=== PATIENT | male | born 1985 | race Hispanic/Latino ===

== ENCOUNTER 2017-05-03 12:37 | Emergency (ER) | payer OTHER ==
[2017-05-03 12:37] VITALS: BMI 27.1
[2017-05-03 13:00] VITALS: RESP 18; TEMP 98.4
--- NOTE | 2017-05-03 13:44 | RAD ---
PROCEDURE: Right Wrist Radiographs. HISTORY: wrist injury COMPARISON: None. FINDINGS: BONES: Comminuted fracture 5th metacarpal base with intra-articular extension. No significant appearing displacement. JOINTS: . No dislocation. SOFT TISSUES: Normal. OTHER FINDINGS: None. IMPRESSION: Fifth metacarpal base comminuted fracture - nondisplaced. Intraarticular extension
--- NOTE | 2017-05-03 13:44 | RAD ---
PROCEDURE: Right Hand Radiographs. HISTORY: hand injury COMPARISON: None. FINDINGS: BONES: Normal. No fracture.Comminuted fracture 5th metacarpal base with intra-articular extension. No significant appearing displacement. JOINTS: . No osteoarthritic changes. SOFT TISSUES: Soft tissue swelling bordering 5th metacarpal fracture OTHER FINDINGS: None. IMPRESSION: Comminuted fracture 5th metacarpal base with intra-articular extension. No significant appearing displacement.
--- NOTE | 2017-05-03 14:12 | ED PDOC ---
Arrival/HPI - General Chief Complaint: Finger,Hand,&Wrist Time Seen by Provider: 05/03/17 13:09 Historian: Patient - History of Present Illness Narrative History of Present Illness (Text): 05/03/17 Oh Gomez is a 32 year old male, who presents to the emergency department complaining of dorsal aspect of right hand and wrist pain s/p mechanical fall four days ago. Patient reports he was trying to get something out from his closet when he fell off from ladder. Patient landed on his right hand and arm and ever since then his symptoms have been present. He denies any head trauma or loss of consciousness. Patient states pain is worse with movement / motion. Patient denies any numbness, tingling, or weakness. No other complaints were made. Time/Duration: < week (4 days) Symptom Onset: Sudden Symptom Course: Unchanged Modifying Factors (Text): worse with movement/motion Context: Home, Other (fell off ladder) Past Medical History - Provider Review Nursing Documentation Reviewed: Yes - Past History Past History: No Previous - Infectious Disease Hx of Infectious Diseases: None - Past Medical History Past Medical History: Non-Contributing - Musculoskeletal/Rheumatological Hx Musculoskeletal Disorders: Yes Other/Comment: Left ankle fracture 2015 - Psychiatric Hx Psychophysiologic Disorder: No Hx Depression: No Hx Emotional Abuse: No Hx Physical Abuse: No Hx Substance Use: No - Past Surgical History Past Surgical History: Non-Contributing - Anesthesia Hx Anesthesia: No Hx Anesthesia Reactions: No Hx Malignant Hyperthermia: No - Suicidal Assessment Feels Threatened In Home Enviroment: No Family/Social History - Physician Review Nursing Documentation Reviewed: Yes Family/Social History: Unknown Family HX Smoking Status: Current Some Days Smoker Hx Alcohol Use: Yes Hx Substance Use: No Hx Substance Use Treatment: No Allergies/Home Meds Allergies/Adverse Reactions: Allergies No Known Allergies Allergy (Verified 04/05/16 09:57) Review of Systems - Review of Systems Constitutional: absent: Fevers Respiratory: absent: SOB Cardiovascular: absent: Chest Pain Gastrointestinal: absent: Abdominal Pain, Vomiting Musculoskeletal: Other (right hand and wrist pain). absent: Back Pain Neurological: absent: Headache, Dizziness Physical Exam Vital Signs Reviewed: Yes Vital Signs Temp Pulse Resp BP Pulse Ox 05/03/17 15:18 71 18 122/81 100 05/03/17 12:37 98.4 F 88 18 118/75 99 Temperature: Afebrile Blood Pressure: Normal Pulse: Regular Respiratory Rate: Normal Appearance: Positive for: Well-Appearing, Non-Toxic, Comfortable Pain Distress: None Mental Status: Positive for: Alert and Oriented X 3 - Systems Exam Head: Present: Atraumatic, Normocephalic Conjunctiva: Present: Normal Mouth: Present: Moist Mucous Membranes Neck: Present: Normal Range of Motion Respiratory/Chest: Present: Clear to Auscultation, Good Air Exchange. No: Respiratory Distress, Accessory Muscle Use Cardiovascular: Present: Regular Rate and Rhythm, Normal S1, S2. No: Murmurs Upper Extremity: Present: Normal Inspection, Normal ROM, NORMAL PULSES, Tenderness (point tenderness on base of 5th metacarpal and noted ulnar aspect of wrist), Swelling (right wrist side ), Neurovascularly Intact, Capillary Refill < 2s. No: Cyanosis, Edema, Erythema, Deformity Neurological: Present: GCS=15, Speech Normal, Motor Func Grossly Intact, Normal Sensory Function, Gait Normal Skin: Present: Warm, Dry, Normal Color. No: Rashes Psychiatric: Present: Alert, Oriented x 3 Medical Decision Making ED Course and Treatment: 05/03/17 Impression: 32 year old male with right hand and wrist pain. On physcal, patient has swelling on right side of wrist. Also noted point tenderness on base of 5th metacarpal and noted ulnar aspect of wrist. FROM of both wrist and hand. Sensation and pulses are intact. No erythema. Differential Diagnosis included but are not limited to: fracture Plan: -- Right hand x-ray -- Right wrist x-ray -- Motrin -- Reassess and disposition Progress Notes: Patient refused IM medication for pain, but requested Motrin PO. Ulnar Gutter splint was applied by me and patient was instructed to follow up with hand doctor. 05/03/17 13;45 Hand x-ray (right): Creator : Shefali Anderson V. FINDINGS: BONES: Normal. No fracture.Comminuted fracture 5th metacarpal base with intra- articular extension. No significant appearing displacement. JOINTS: No osteoarthritic changes. SOFT TISSUES: Soft tissue swelling bordering 5th metacarpal fracture OTHER FINDINGS: None. IMPRESSION: Comminuted fracture 5th metacarpal base with intra-articular extension. No significant appearing displacement. 05/03/17 13:45 Wrist x-ray (right): Creator : Shefali Anderson V. FINDINGS: BONES: Comminuted fracture 5th metacarpal base with intra-articular extension. No significant appearing displacement. JOINTS: No dislocation. SOFT TISSUES: Normal. OTHER FINDINGS: None. IMPRESSION: Fifth metacarpal base comminuted fracture - nondisplaced. Intraarticular extension all results discussed with patient; stressed importance of f/u within the next 2 days. return immediately if unable to f/u with hand specialist. IMPRESSION: Fifth metacarpal base comminuted fracture Motrin every 6 hours as needed for pain Tramadol 1 tablet every 6 hours as needed for moderate to severe pain. may cause drowsiness. Rest, ice, compression, elevation Followup with the orthopedist/hand specialist within the next 2 days Followup with primary care physician within the next 2 days Return if any other concerning symptoms develop Reevaluation: On reevaluation the patient feels better and is in no acute distress. I have discussed the results and plan with the patient, who expresses understanding. Patient given the opportunity to ask question, all questions were answered and there is agreement with the plan to discharge the patient home after application of ulnar splint. Patient is stable for discharge. Patient was instructed to follow up with hand doctor. - RAD Interpretation Radiology Orders: 05/03/17 13:09 HAND RIGHT 3 VIEWS [RAD] Stat WRIST, RIGHT 3 VIEWS [RAD] Stat Alum Mixer: Radiologist - Medication Orders Current Medication Orders: Discontinued Medications Ibuprofen (Motrin Tab) 600 mg PO STAT STA Stop: 05/03/17 13:10 Last Admin: 05/03/17 13:51 Dose: 600 mg MAR Pain/Vitals Document 05/03/17 13:51 EQ (Rec: 05/03/17 13:52 EQ [id number]) Pain Reassessment Is This A Pain ReAssessment? No Sleep Is patient sleeping during reassessment? No Presence of Pain Presence of Pain Yes Procedures - Splinting Location: right hand Hand-Made Type: fiberglass Splint: ulnar (ulnar gutter) Pre-Proc Neuro Vasc Exam: normal Post-Proc Neuro Vasc Exam: normal Progress: sling applied - Scribe Statement The provider has reviewed the documentation as recorded by the Mariella Sheehan Provider Scribe Attestation: All medical record entries made by the Scribe were at my direction and personally dictated by me. I have reviewed the chart and agree that the record accurately reflects my personal performance of the history, physical exam, medical decision making, and the department course for this patient. I have also personally directed, reviewed, and agree with the discharge instructions and disposition. Disposition/Present on Arrival - Present on Arrival Any Indicators Present on Arrival: No History of DVT/PE: No History of Uncontrolled Diabetes: No Urinary Catheter: No History of Decub. Ulcer: No History Surgical Site Infection Following: None - Disposition Have Diagnosis and Disposition been Completed?: Yes Diagnosis: Fracture of fifth metacarpal bone Disposition: HOME/ ROUTINE Disposition Time: 14:08 Patient Plan: Discharge Condition: GOOD Discharge Instructions (ExitCare): Hand Fracture (ED) Additional Instructions: Motrin every 6 hours as needed for pain Tramadol 1 tablet every 6 hours as needed for moderate to severe pain. may cause drowsiness. Rest, ice, compression, elevation Followup with the orthopedist/hand specialist within the next 2 days Followup with primary care physician within the next 2 days Return if any other concerning symptoms develop Prescriptions: Ibuprofen [Motrin] 600 mg PO Q6H PRN #20 tab PRN Reason: pain/fever reduction traMADol [Ultram] 50 mg PO Q6H PRN #6 tab PRN Reason: moderate to severe pain Referrals: Jamarcus Ruggiero MD [Staff Provider] - Follow up with primary Liam Brody III, MD [Medical Doctor] - Follow up with primary Soumya Mays MD [Staff Provider] - Follow up with primary Ant Novoa MD [Staff Provider] - Follow up with primary Sofía Gaston MD [Non-Staff] - Follow up with primary [facility] [Outside] - Follow up with primary Forms: [facility] (Slovak), WORK NOTE
[2017-05-03 15:19] VITALS: BP 122/81; PULSE 71; O2SAT 100
== END 2017-05-03 15:18 | disposition home or self-care (01) ==
LOC: ED 12:37
DX: S62.306A Unspecified fracture of fifth metacarpal bone, right hand, initial encounter for closed fracture (principal); W11.XXXA Fall on and from ladder, initial encounter; Y93.E9 Activity, other interior property and clothing maintenance; Y92.008 Other place in unspecified non-institutional (private) residence as the place of occurrence of the external cause

== ENCOUNTER 2018-05-03 11:31 | Emergency (ER) | payer OTHER, BC ==
[2018-05-03 12:05] VITALS: BMI 28.5
[2018-05-03 12:09] VITALS: BP 141/86; PULSE 86; RESP 18; TEMP 98.2; O2SAT 100
[2018-05-03] MEDS ORDERED: Silver Sulfadiazine 1% Cream (25 gm) TP STA (12:16)
--- NOTE | 2018-05-03 12:39 | ED PDOC ---
Arrival/HPI - General Historian: Patient - History of Present Illness Narrative History of Present Illness (Text): 05/03/18 12:36 33yo male employee of [employer] who present to ED with right upper arm/forearm injury this morning. states he accidentally burned himself, when he hit a hot oven, while cleaning it this morning. Notes that his last TD vaccine was 2years ago. Reports pain to the area. Denies any other complaint. <Santana Marrufo A - Last Filed: 05/03/18 12:36> <Scott Masters - Last Filed: 05/04/18 07:26> - General Chief Complaint: Burn Time Seen by Provider: 05/03/18 12:16 Past Medical History - Provider Review Nursing Documentation Reviewed: Yes - Past History Past History: No Previous - Infectious Disease Hx of Infectious Diseases: None - Past Medical History Past Medical History: Non-Contributing - Cardiac Hx Cardiac Disorders: No - Pulmonary Hx Respiratory Disorders: No - Neurological Hx Neurological Disorder: No - HEENT Hx HEENT Disorder: No - Renal Hx Renal Disorder: No - Endocrine/Metabolic Hx Endocrine Disorders: No - Hematological/Oncological Hx Blood Disorders: No - Integumentary Hx Dermatological Disorder: No - Musculoskeletal/Rheumatological Hx Musculoskeletal Disorders: Yes Other/Comment: Left ankle fracture 2015 - Gastrointestinal Hx Gastrointestinal Disorders: No - Genitourinary/Gynecological Hx Genitourinary Disorders: No - Psychiatric Hx Psychophysiologic Disorder: No Hx Depression: No Hx Emotional Abuse: No Hx Physical Abuse: No Hx Substance Use: No - Past Surgical History Past Surgical History: Non-Contributing - Anesthesia Hx Anesthesia: No Hx Anesthesia Reactions: No Hx Malignant Hyperthermia: No - Suicidal Assessment Feels Threatened In Home Enviroment: No <Santana Marrufo A - Last Filed: 05/03/18 12:36> Family/Social History - Physician Review Nursing Documentation Reviewed: Yes Family/Social History: Unknown Family HX Smoking Status: Light Smoker < 10 Cigarettes Daily Hx Alcohol Use: Yes Frequency of alcohol use: Few days per week Hx Substance Use: No Hx Substance Use Treatment: No <Santana Marrufo A - Last Filed: 05/03/18 12:36> Allergies/Home Meds <Santana Marrufo A - Last Filed: 05/03/18 12:36> <Scott Masters - Last Filed: 05/04/18 07:26> Allergies/Adverse Reactions: Allergies No Known Allergies Allergy (Verified 05/03/18 12:05) Review of Systems - Physician Review All systems were reviewed & negative as marked: Yes - Review of Systems Constitutional: Normal Eyes: Normal ENT: Normal Respiratory: Normal Cardiovascular: Normal Gastrointestinal: Normal Genitourinary Male: Normal Musculoskeletal: Normal Skin: Other (Right arm burn) Neurological: Normal Endocrine: Normal Hemo/Lymphatic: Normal Psychiatric: Normal <Santana Marrufo A - Last Filed: 05/03/18 12:36> Physical Exam Vital Signs Reviewed: Yes Vital Signs Temp Pulse Resp BP Pulse Ox 05/03/18 12:08 98.2 F 86 18 141/86 100 Temperature: Afebrile Blood Pressure: Normal Pulse: Regular Respiratory Rate: Normal Appearance: Positive for: Well-Appearing, Non-Toxic, Comfortable Pain Distress: None Mental Status: Positive for: Alert and Oriented X 3 - Systems Exam Head: Present: Atraumatic, Normocephalic Pupils: Present: PERRL Extroacular Muscles: Present: EOMI Conjunctiva: Present: Normal Mouth: Present: Moist Mucous Membranes Neck: Present: Normal Range of Motion Respiratory/Chest: Present: Clear to Auscultation, Good Air Exchange. No: Respiratory Distress, Accessory Muscle Use Cardiovascular: Present: Regular Rate and Rhythm, Normal S1, S2. No: Murmurs Abdomen: No: Tenderness, Distention, Peritoneal Signs Back: Present: Normal Inspection Upper Extremity: Present: Normal Inspection. No: Cyanosis, Edema Lower Extremity: Present: Normal Inspection. No: Edema Neurological: Present: GCS=15, CN II-XII Intact, Speech Normal Skin: Present: Warm, Dry, Normal Color, Erythematous (Approximately 7 x 7 area of erythema to right upper lateral arm and 4 x 3cm over the elbow.), Other. No: Rashes Psychiatric: Present: Alert, Oriented x 3, Normal Insight, Normal Concentration <Santana Marrufo A - Last Filed: 05/03/18 12:36> Vital Signs Temp Pulse Resp BP Pulse Ox 05/03/18 12:08 98.2 F 86 18 141/86 100 <Scott Masters - Last Filed: 05/04/18 07:26> Medical Decision Making ED Course and Treatment: 05/03/18 12:39 wound was slowly irrigated with NS. Silverdiene cream applied and dressed. Pt was placed on prophylactic abx His TD booster is up to date Referred to employee health/[facility] burn unit. - Medication Orders Current Medication Orders: Discontinued Medications Cephalexin Monohydrate (Keflex) 500 mg PO STAT STA; Protocol Stop: 05/03/18 12:17 Last Admin: 05/03/18 12:25 Dose: 500 mg Silver Sulfadiazine (Silvadene 1% 25 Gm) 45 gm TP STAT STA Stop: 05/03/18 12:17 Last Admin: 05/03/18 12:25 Dose: 45 gm Tramadol HCl (Ultram) 50 mg PO STAT STA Stop: 05/03/18 12:19 <Santana Marrufo - Last Filed: 05/03/18 12:36> - Medication Orders Current Medication Orders: Discontinued Medications Cephalexin Monohydrate (Keflex) 500 mg PO STAT STA; Protocol Stop: 05/03/18 12:17 Last Admin: 05/03/18 12:25 Dose: 500 mg Silver Sulfadiazine (Silvadene 1% 25 Gm) 45 gm TP STAT STA Stop: 05/03/18 12:17 Last Admin: 05/03/18 12:25 Dose: 45 gm Tramadol HCl (Ultram) 50 mg PO STAT STA Stop: 05/03/18 12:19 Last Admin: 05/03/18 12:40 Dose: 50 mg MAR Pain Assessment Document 05/03/18 12:40 LA (Rec: 05/03/18 12:41 LA [id number]) Pain Reassessment Is this a pain reassessment? No Sleep Is patient sleeping during reassessment? No Presence of Pain Presence of Pain Yes Pain Scale Used Protocol: PSCALES Pain Scale Used Numeric Location Left, Right or Bilateral Right Pain Location Body Site Arm Description Description Constant Intensity of Pain at present 8 Pain Behavior Guarding Facial Grimacing <Scott Masters - Last Filed: 05/04/18 07:26> - PA / SALES DEVELOPMENT MANAGER / Resident Statement / has reviewed & agrees with the documentation as recorded. <Scott Masters - Last Filed: 05/04/18 07:26> Disposition/Present on Arrival - Present on Arrival Any Indicators Present on Arrival: No History of DVT/PE: No History of Uncontrolled Diabetes: No Urinary Catheter: No History of Decub. Ulcer: No History Surgical Site Infection Following: None - Disposition Have Diagnosis and Disposition been Completed?: Yes Disposition Time: 12:40 Patient Plan: Discharge <Santana Marrufo - Last Filed: 05/03/18 12:36> <Scott Masters - Last Filed: 05/04/18 07:26> - Disposition Diagnosis: Burn Disposition: HOME/ ROUTINE Condition: STABLE Discharge Instructions (ExitCare): [facility] [place] Additional Instructions: [facility] Employee Regarding your Work Related Injury, you are instructed to do all of the foll owing by next day: 1. Notify [facility] Employee Health Department of the sustained injury and arrange for any follow-up appointments if needed during the next . If the office is closed or no answer is received, please leave a detailed voice message. Message should include your full name, department and internal security manager, date of injury, date of ED visit if applicable. [facility] can be reached at [phone]. 2. If there is time lost, notify [facility] Human Resources Department of the work related injury the next at [phone]. Keep area clean and dry Follow up with Employee health/[facility] burn unit Return to ED for any new or worsening symptoms Prescriptions: Cephalexin [Keflex] 500 mg PO TID #21 capsule Referrals: [facility] at [facility] [Outside] - Follow up with primary Forms: [facility] (Irish), WORK NOTE
== END 2018-05-03 13:15 | disposition home or self-care (01) ==
LOC: ED 11:31
DX: T22.10XA Burn of first degree of shoulder and upper limb, except wrist and hand, unspecified site, initial encounter (principal); X15.0XXA Contact with hot stove (kitchen), initial encounter; Y92.238 Other place in hospital as the place of occurrence of the external cause; Y99.0 Civilian activity done for income or pay